=== PATIENT | male | born 1980 | race Two or more races ===

== ENCOUNTER 2025-10-09 20:52 | Emergency (ER) | payer OTHER ==
[~2025-10-09] VITALS: Ht 175.3 cm; Wt 81.6 kg
[2025-10-10] MEDS ORDERED: DICLOFENAC SODI50 MG PO (01:58)
[2025-10-10] MEDS ORDERED: DEXAMETHASONE SODIUM PHOSPHATE 4 MG/ML VIAL IM ONE (02:15)
[2025-10-10] MEDS ORDERED: KETOROLAC TROMETHAMINE 30 MG VIAL IM ONE (02:15)
== END 2025-10-10 03:28 | disposition home or self-care (01) ==
LOC: ER 20:53
DX: R07.89 Other chest pain (principal); S29.8XXA Other specified injuries of thorax, initial encounter; W18.39XA Other fall on same level, initial encounter; Y93.89 Activity, other specified; Y92.39 Other specified sports and athletic area as the place of occurrence of the external cause